=== PATIENT | female | born 1975 | race Caucasian/White ===

== ENCOUNTER 2016-08-14 12:09 | Day surgery (SDC) | payer MEDICAID, OTHER ==
[2016-08-14] VITALS (13 sets, daily range): BP systolic 119–158; BP diastolic 7–91; PULSE 68–80; RESP 6–20; O2SAT 95–100
[~2016-08-14] VITALS: Ht 154.9 cm; Wt 74.8 kg
[2016-08-14] MEDS: Lactated Ringer's 1,000 ML IV SCH ×3 (05:00→13:04)
[~2016-08-14 12:09] MED LIST: ACET-2766 PO; ASPI-973 PO; CeFAZolin 2 Gm/50 mL D5W IV Premix IV ONE; MELO-253 PO; TRAM50TA2 PO; Vancomycin Inj 1,000 MG in IV Premix 1 EACH IV ONE
[2016-08-14] MEDS ORDERED: fentaNYL-PF 50 mCg/mL 2 mL Inj ONE (12:10)
[2016-08-14] MEDS ORDERED: CeFAZolin 2 Gm/50 mL D5W Duplex Bag IV ONE (12:23)
[2016-08-14] MEDS ORDERED: Vancomycin 1,000 mg/200 mL D5W IV ONE (12:23)
[2016-08-14] MEDS ORDERED: Lactated Ringer's 1,000 ML IV SCH (12:38)
[2016-08-14] MEDS ORDERED: Lactated Ringer's 500 ML IV PRN (12:38)
[2016-08-14] MEDS ORDERED: MetoCLOpramide 5 mg/mL 2 mL Inj IVPUSH PRN (12:40)
[2016-08-14] MEDS ORDERED: Labetalol 5 mg/mL 4 mL Inj IV PRN (12:40)
[2016-08-14] MEDS ORDERED: Dexamethasone 4 mg/mL Inj IVPUSH PRN (12:40)
[2016-08-14] MEDS ORDERED: EPHEDrine Sulfate 50 mg/mL Inj IVPUSH PRN (12:40)
[2016-08-14] MEDS ORDERED: Ondansetron 2 mg/mL 2 mL Inj IVPUSH PRN ×2 (12:40→14:40)
[2016-08-14] MEDS ORDERED: Phenylephrine 10,000 mCg/mL Inj IVPUSH PRN (12:40)
--- NOTE | 2016-08-14 12:40 | PCM.HPANE ---
Patient Data Surgeon Admitting Provider: Attending Provider:Devan Hernandez DO Primary Care Physician:Eric Arora MD Other Provider:Reta Echevarria Anesthesia Reason for Visit Left Knee Arthritis Ht/WT & BMI Height (Feet): 5 Height (Inches): 1.00 Weight (Kilograms): 74.8 Body Mass Index 31.00 Allergies Coded Allergies: meperidine (Verified Allergy, Unknown, nausea/vomiting, 06/02/15) Past Anesthesia History Anesthesia History: Denies:: Anesthesia Reactions ("issues breathing" after tubal), Fam Anesthesia Reaction, Fam Malignant Hypertherm, Malignant Hyperthermia Diabetes History Hx Diabetes?: No MRSA MRSA: No Medications Blood Thinner: Aspirin Home Meds Incl Beta Alvin: No Reported Medications Acetaminophen (Tylenol Arthritis)650 Mg Tablet.er1,300 Mg PO Q8H PRN For Pain 08/09/16 Tramadol 50 Mg [id number] Mg PO TID PRN For Pain Ref 0 08/09/16 Meloxicam 15 Mg [id number] Mg PO DAILY 30 Days Ref 0 08/09/16 Aspirin 81 Mg Rttmpn47 Mg PO DAILY Ref 0 08/09/16 Discontinued Reported Medications Naproxen (Naprosyn)500 Mg [id number] Mg PO BID PRN For Pain Ref 0 06/02/15 Lactobacillus Combo No.11 (Probiotic)1 Each Cap.sprink1 Each PO DAILY 09/10/14 History History of ENT Problems?: No HEENT History: Denies:: Hearing Problem Hx of Heart Problems?: Yes Cardiovascular History: Positive for:: Atrial Fibrillation (PAF in 2006) Chest Pain (atypical chest pain with w/up 2006 r/o WPW) Irregular Heartbeat (hx of WPW) Denies:: AICD Congestive Heart Failure Heart Murmur Hypertension Pacemaker Peripheral Vascular Hx of Respiratory Problem?: No Respiratory History: Positive for:: Pneumonia (as child ) Denies:: Asthma COPD Emphysema Oxygen Administration Tuberculosis Use of C-PAP Machine Use of Inhalers / NEBS Hx Neurologic Problems?: Yes Neurological History: Positive for:: Headaches (twice weekly) Denies:: CVA Dementia Dizziness Multiple Sclerosis Parkinson's Disease Seizures TIA Hx of GI Problems?: Yes Gastrointestinal History: Positive for:: Gall Bladder Disease (removed ) Denies:: Cirrhosis Gastroesphageal Reflux Gastrointestinal Bleeding Hepatitis Hiatal Hernia Liver Disease Rectal Bleeding Hx of Problems?: No Genitourinary History: Denies:: Kidney Stones Urinary Tract Infection Female Hx: Denies:: Currently (tubal ligation) Problems with Breasts? Skin History: Denies:: History Skin Disorders? Pressure Ulcers Hx Musculoskeletal Problems?: Yes Musculoskeletal History: Positive for:: Musculoskeletal Trauma (left knee current admission problem) Osteoarthritis Denies:: Back Injury Fibromyalgia Joint Replacement Myasthenia Gravis Systemic Lupus Hx of Psycho/Social Problems?: No Psycho Social History: Denies:: Anxiety Hx Depression Hx Surgeries?: Yes (tubal ligation, lu, knee scope ) Hx Any Other Health Problems?: Yes Other History: Denies:: Cancer Thyroid Disease History Blood Transfusions: Positive for:: Accept Blood Products? Denies:: Blood Transfusions Hx Diabetes: No Hx Alcohol Use: NoHx Substance Use: Yes (occ marijuana ) Smoking Status: Former Smoker Have You Smoked inLast 12 mo: No Stop/Bang Treated for Sleep Apnea?: No Do You Have a CPAP Machine?: No S-Snoring: Do You Snore Loudly: Yes T-Tired: feel tired, fatigued: Yes O-Obsered: Observed not breath: Yes P-Blood Pressure: treated: No B- Body Mass Index > 35 kg/m2: Yes A- Age over 50: No N- Neck Large Circumference: No G- Gender Male: No DUKE Total Score: 4 DUKE Risk Assessment: Low Risk, <3 Yes Risk Assessment Category Category 1A: Patient has history of documented sleep apnea, and HAS NOT received any narcotic, sedative or anesthesia administration during this stay. Category 1B: Patient has history of documented sleep apnea, and HAS received any narcotic , sedative or anesthesia administration during this stay Category 2: Patient has SUSPECTED Obstructive Sleep Apnea, and HAS received any narcotic , sedative or anesthesia administration during this stay. Category 3: Patient has SUSPECTED Obstructive Sleep Apnea and HAS NOT received narcotic, sedative or anesthesia administration during this stay. Category 4: Outpatient in Procedural Areas with known sleep apnea or who screen positive for High Risk via the STOP/BANG questionnaire. Exam Exam Vital Signs Vital Signs Date Time Temp Pulse Resp B/P Pulse Ox O2 Delivery O2 Flow Rate FiO2 08/14/16 12:20 36.8 70 14 135/91 99 Room Air General Appearance: Oriented X3 HEENT/AIRWAY: MP 2 Lungs: Normal Air Movement Heart: Regular Rate/Rhythm Meds/Labs/Diagnostics Admission Meds Current Medications Lactated Ringer's (Lr) 1,000 ml @ 120 mls/hr Q8H20M IV Last administered on t 12:20; Start 08/14/16 at 05:00; Stop 08/14/16 at 13:19 Plan Impression Patient chart reviewed, patient interviewed and anesthestic plan with risks, benefits, and alternatives discussed, and informed consent obtained. NPO Status: 08/14 ASA Physical Status: ASA2 Mod Systemic Disease Anesthetic Plan: GA, Regional Block Bene/Risks/Altern/Consents: Yes HP Complete Prior to Induction: Yes Danilo Rodrigues MD Aug 14, 2016 12:40
[2016-08-14] MEDS ORDERED: Ropivacaine-PF 0.5% 30 mL Inj ARTICULAR ONE (13:28)
[2016-08-14] MEDS ORDERED: Magnesium Hydroxide 10 mL Oral Concentration PO PRN (14:40)
[2016-08-14] MEDS ORDERED: diphenhydrAMINE 25 mg Capsule PO PRN (14:40)
[2016-08-14] MEDS ORDERED: Acetaminophen IV 1,000 MG in IV Premix 1 EACH IV PRN (14:40)
[2016-08-14] MEDS ORDERED: HYDROmorphone 1 mg/mL Inj IVPUSH PRN (14:40)
[2016-08-14] MEDS ORDERED: Polyethylene Glycol (PEG) 17 Gm Powder PO PRN (14:40)
[2016-08-14] MEDS: HYDROmorphone 1 mg/mL Inj IVPUSH PRN ×4 (15:12→18:23)
[2016-08-14] MEDS: fentaNYL-PF 50 mCg/mL 2 mL Inj IVPUSH PRN ×2 (15:12→15:32)
--- NOTE | 2016-08-14 15:16 | DRSVH ---
PROCEDURE: X-RAY LEFT KNEE, ONE OR TWO VIEWS ([id number]) INDICATIONS: post op TECHNIQUE: 2 view(s) of the knee acquired. COMPARISON: 07/05/2016 FINDINGS: Bones: Patient is status post knee joint arthroplasty. Hardware components are in expected position s. Visualized bony structures are intact. Soft tissues: Overlying postoperative changes are noted. Bandage artifact overlies the anterior knee . IMPRESSION: Acute postoperative changes of the medial hemiarthroplasty with expected appearance. Dictated by: Ang Calloway M.D. on 08/14/2016 at 15:14 Approved by: Ang Calloway M.D. on 08/14/2016 at 15:15
--- NOTE | 2016-08-14 15:35 | PCM.ANEP2 ---
Post Anesthesia Evaluation ASA/CMS Post Anesthesia VS in Patient's Normal Range?: Yes Resp Stable; Airway Patent?: Yes CV Function & Hydration Stable: Yes Mental Status Recovered?: Yes Pain control Satisfactory?: Yes N/V Control Satisfactory?: Yes Danilo Rodrigues MD Aug 14, 2016 15:35
--- NOTE | 2016-08-14 15:35 | PCM.ANEP1 ---
Post Anesthesia Phase 1 PACU Phase 1 Assessment Vital Signs Vital Signs Date Time Temp Pulse Resp B/P Pulse Ox O2 Delivery O2 Flow Rate FiO2 08/14/16 15:25 69 13 138/80 98 Nasal Cannula 3 08/14/16 15:10 79 6 123/80 100 Simple Mask 10 08/14/16 15:05 80 14 129/85 100 Simple Mask 10 08/14/16 15:00 72 14 125/76 100 Simple Mask 10 08/14/16 14:56 36.3 74 20 123/60 100 Simple Mask 10 08/14/16 12:20 36.8 70 14 135/91 99 Room Air Anesthetic Administered: GA, Regional Block Level of Alertness: Awake, talking Pain: No Nausea or Vomiting: No Oxygen Delivery: Room Air Lungs: Normal Air Movement Danilo Rodrigues MD Aug 14, 2016 15:35
--- NOTE | 2016-08-14 16:06 | OP ---
[address] [address] OPERATIVE REPORT PATIENT: HORACIO LIM : 1975 MR#: [id number] ADMIT: 08/14/2016 JOB ID: [id number] DATE OF SURGERY: 08/14/2016 PREOPERATIVE DIAGNOSIS(ES): Left medial compartment knee degenerative arthritis. POSTOPERATIVE DIAGNOSIS(ES): Left medial compartment knee degenerative arthritis. PROCEDURE: Left unicompartmental knee arthroplasty. SURGEON: Devan Hernandez DO UNDERWRITER: Luisana Hancock PA-C. INDICATIONS: The patient is a 41-year-old female with left knee medial compartment degenerative arthritis with failed conservative measures and wished to proceed with a medial compartment unicompartmental knee arthroplasty. We discussed risks, benefits, and possible complications of surgery. All questions were answered and she wished to proceed. A assembler surgical garment was required for the successful completion of this procedure. PROCEDURE IN DETAIL: The patient is brought to the operating room. She was given a preoperative antibiotic, femoral nerve block and general anesthetic. The left lower extremity was sterilely prepped and draped. A tourniquet was used for hemostasis. An incision was made over the anteromedial knee and dissection was carefully carried through the subcutaneous tissue. A small portion of the fat pad and the meniscus were removed. The anterior tyree of the anteromedial tibia was resected and the osteophytes were removed off of the medial femoral condyle. The Iris unicondylar knee cutting jig was placed in extension and care was taken to ensure that the jig was parallel to the long axis of the tibia. This was then pinned into position and the distal femoral cut was performed. The knee was then flexed and the tibial cut was performed, both the horizontal and sagittal cuts. The cutting jig was then removed and the cut pieces of bone were removed. The femur was then sized, and felt to be a size D. The D femur was pinned into position and the lugs were drilled and the femoral cuts were then performed. The tibia was then prepared and sized to be a size 2. The pin was cut and the size two tibial trial was inserted and then the lugs were drilled. The components were then trialed and seemed to fit quite nicely with a size 9 thickness poly. The components were then removed and the bony surfaces were washed and dried. The components were cemented into position beginning with the Gil [employer]hew ZUK 2 tibia followed by the D femur and an 8 mm poly was inserted initially while the cement was allowed to polymerize. All excess cement was removed. After the components fully seated and the cement had been allowed to polymerize, the excess cement was removed with an osteotome. I then retrialed and placed a size 9 thickness poly with vitamin E. The knee was then irrigated with the pulse lavage and the tourniquet was let down. Electrocautery was used for hemostasis. The wound was then closed with #1 Surgilon and 0 Vicryl to repair the medial retinaculum and quad tendon. The subcu was closed with a 2-0 running V lock and the skin was closed with a subcuticular 3-0 running V lock suture. Naropin was added as an adjunct local anesthetic. Sterile dressings were applied. Patient tolerated the procedure well. Blood loss was 25 cc. POSTOPERATIVE PROTOCOL: Have the patient weightbear to tolerance. Use crutches or walker for ambulation. Plan to use Xarelto 10 mg p.o. daily for DVT prophylaxis and followup in two weeks or sooner if needed.
[2016-08-14] MEDS: Sodium Chloride LOK Flush 10 mL Syringe IV SCH ×2 (16:30→23:43)
[2016-08-14] MEDS ORDERED: Propofol 10,000 mCg/mL 20 mL Inj ONE (17:20)
[2016-08-14] MEDS ORDERED: Ondansetron 2 mg/mL 2 mL Inj ONE (17:20)
[2016-08-14] MEDS ORDERED: MetoCLOpramide 5 mg/mL 2 mL Inj ONE (17:20)
[2016-08-14] MEDS ORDERED: Dexamethasone 4 mg/mL Inj ONE (17:20)
[2016-08-14] MEDS: 0.9% Sodium Chloride 1,000 ML IV SCH (18:22)
--- NOTE | 2016-08-14 18:25 | NUR ---
postop: Pt to floor from day surgery holding. Pt alert, and states pain 2/10. Able to transfer self to bed. Iv NS at 100 started. Using bedside commode to void. Catarino wrap to left knee. Full feeling to bilateral legs. Pt drinking well, no nausea, has ordered dinner. Pts family at bedside.
[2016-08-14] MEDS: hydrOXYzine Pamoate 25 mg Capsule PO PRN (19:55)
[2016-08-14] MEDS: Senna-Docusate 8.6-50 mg Tablet PO SCH (19:55)
[2016-08-14] MEDS: oxyCODONE-Acetamin 5-325 mg Tablet PO PRN (19:55)
[2016-08-14] MEDS: CeFAZolin Inj 2 GM in IV Premix 1 EACH IV SCH (21:01)
[2016-08-15] MEDS: oxyCODONE-Acetamin 5-325 mg Tablet PO PRN ×3 (00:24→09:01)
[2016-08-15 00:35] VITALS: BP 130/82; PULSE 78; RESP 18; O2SAT 95
[2016-08-15] MEDS: 0.9% Sodium Chloride 1,000 ML IV SCH ×2 (00:40→10:40)
--- NOTE | 2016-08-15 03:41 | NUR ---
Pain Pain controlled with po analgesia and occasional IVP dilaudid.VSS and ORTHOS WNL.Dressing CDI.Lamin. food and fluids w/o c/o nausea.Up with SBA and FWW and moving well.Sleeping soundly at this time and resting comfortably.Will cont. to monitor.
[2016-08-15 05:00] VITALS: BP 129/68; PULSE 80; RESP 18; O2SAT 96
[2016-08-15] MEDS: hydrOXYzine Pamoate 25 mg Capsule PO PRN ×2 (05:08→09:01)
[2016-08-15] MEDS: CeFAZolin Inj 2 GM in IV Premix 1 EACH IV SCH (05:09)
[2016-08-15 06:26] LABS: BASOPHILS % (AUTO) 0 % (0-3); EOSINOPHILS % (AUTO) 0 % (0-5); MONOCYTES % (AUTO) 8.3 % (4-12); Mean Corpuscular Hemoglobin 27.2 pg (27.0-35.0); Mean Corpuscular Volume 84.2 fL (81-100); NEUTROPHILS % (AUTO) 82.7 % (40-74); Platelet Count 392 bil/L (150-400)
--- NOTE | 2016-08-15 08:16 | PCM.PNORTH ---
Subjective Date of Service: Aug 15, 2016 Visit Information: Reason for Visit Left Knee Arthritis Surgery/Surgery Date Post-Op Day # Date of Admission: Aug 14, 2016 at 17:19 Hospital Day # Subjective Found patient awake alert this morning and well-positioned in bed. No complaints of pain at this time. Discussed discharge with patient today and she is aware of this. Encouraged participation with formal physical therapy again this morning prior to discharge for training. She states she walked from her room to the end of the [facility] yesterday on her op day. She has had some pain overnight but this was managed by her nurse with Percocet and Vistaril. Patient indicates she has 2-3 steps at her home and I have asked her to discuss this with physical therapy and practice stair training prior to discharge. Patient also indicates she has crutches at home for mobility and does not feel stable with him. I have encouraged patient to use a front wheeled walker for mobility and I will leave a prescription for a frontwheel walker in her chart which she can fill on the way home if needed. Otherwise patient is in good spirits and does have help at home and is ready for discharge. Postop General: No Complaints, No Shortness of Breath, No Chest Pain Pain Management: PO Objective Exam Objective Orientation: Alert and oriented 3 and pleasant. Dressing: Interoperative dressing is clean dry and intact. Dressing is changed to Dr. Hernandez style postop dressing with Silverlon this morning. Wound: Surgical wound is clean dry and intact with no focal erythema, no drainage and no focal swelling. Compartments: Thigh and calf are soft and nontender. Mobility/sensation: Mobility and sensation are intact at the left lower extremity distally. Abduction wedge: None WIN hose: None Meeks: Absent Wound VAC: None Drain: None Gait: Patient states she walked from her room to the end of the fall and back yesterday on op day. There is no physical therapy note found to verify this. Vital Signs and I/O Vital Sign - Last Date Time Temp Pulse Resp B/P Pulse Ox O2 Delivery O2 Flow Rate FiO2 08/15/16 05:00 36.8 80 18 129/68 96 Room Air 08/14/16 16:18 3 Intake and Output 08/14/16 08/14/16 08/15/16 Cumulative From/Thru 15:00 23:00 07:00 08/09/16 11:00 - 08/15/16 06:01 Intake Total 750 ml 500 ml 1954 ml 3204 ml Output Total 25 ml 1050 ml 1075 ml Balance 725 ml 500 ml 904 ml 2129 ml Intake Oral 400 ml 800 ml 1200 ml IV Total 750 ml 100 ml 1154 ml 2004 ml Output Urine Total 1050 ml 1050 ml Estimated Blood Loss 25 ml 25 ml # Bowel Movements 0 0 Lab & Micro Results Laboratory Tests Test 08/15/16 05:40 White Blood Count 12.6th/mm3 (3.8-10.1) Red Blood Count 4.56mil/mm3 (3.90-5.20) Hemoglobin 12.4g/dL (12.0-15.6) Hematocrit 38.4% (35.0-46.0) Mean Corpuscular Volume 84.2fL (81-100) Mean Corpuscular Hemoglobin 27.2pg (27.0-35.0) Mean Corpuscular Hemoglobin Concent 32.3% (32.0-37.0) Red Cell Distribution Width 13.7% (12.3-15.4) Platelet Count 392bil/L (150-400) Neutrophils (%) (Auto) 82.7% (40-74) Lymphocytes (%) (Auto) 8.8% (14-46) Monocytes (%) (Auto) 8.3% (4-12) Eosinophils (%) (Auto) 0% (0-5) Basophils (%) (Auto) 0% (0-3) Result Diagram: 08/15/16 0540 General Appearance: Alert, Oriented X3, Cooperative, No Acute Distress Extremities: No Compartment Syndrom Noted, Thigh & Calf Soft/Nontender Postop Sensory Motor: Distal Motor Intact, Movement in Toes, Distal Sensation Intact Activity: Activity per PT, Ambulate with PT (weightbearing as tolerated on the left lower extremity using a front wheeled walker.) Catheters: None Assessment & Plan Impression Patient is a 41-year-old female who is undergone a left medial unicompartmental knee arthroplasty on 08/14/[address] Devan Hernandez. She has planned for this procedure and does have help at home and does have crutches at home which is somewhat concerning because she states she does not feel particularly steady on them. I have discussed with her the use of a front wheeled walker and given her a prescription for this. She is otherwise ready for discharge to home today. Problems: Plan Postop day # 1 from left medial unicompartmental knee arthroplasty performed on 08/14/[address] Devan Hernandez. Weight bearing status: Weightbearing as tolerated on the left lower extremity using a front wheeled walker or crutches. Mobility aid: Front wheeled walker or bilateral axillary crutches Immobilization: None Precautions: Standard postop mobility precautions to avoid GL F Physical therapy: Physical therapy please see patient this morning before discharge for gait training and stair training prior to discharge. Patient has bilateral axillary crutches at home but is concerned with her stability and I have left a prescription for a front-wheeled walker in her chart and asked her to obtain this prior to returning home for her safety. Pain control: Continue by mouth pain control with Percocet 5/325 and Vistaril as needed. DVT prophylaxis: Continue Xarelto 10 mg daily 6 weeks postop for DVT prophylaxis. Wound care: Deep wound and dressing clean dry and intact until seen in office in 2 weeks. Additional bandaging supplies have been given to patient with explicit directions regarding their use. Infectious DZ: None Meeks: None Dressing: Interoperative dressing is changed this morning to fishnet, ABD with Silverlon dressing. Silverlon protocol is reviewed with patient and patient is given additional dressing materials. Drain: None Abduction wedge: None WIN hose: Thigh-high WIN hose will be ordered for patient this morning prior to discharge. Nursing communication: Please review application of WIN hose with patient prior to discharge. 2-week follow-up: Follow-up in 2 weeks at [facility] orthopedic clinic on prearranged appointment with mid-level provider for wound check and suture removal. 6-week follow-up: Follow-up in 6 weeks at [facility] orthopedic clinic with Dr. Devan Martini with left two-view knee x-rays on arrival. Plan: Patient will discharged home and pursue mobility exercises as reviewed with her today to gain flexion and extension at the knee. I have asked her use a front wheeled walker which have given her a prescription for today instead of bilateral axillary crutches for safety. Patient will change dressings as needed and this process has been reviewed with her and additional dressing material is given to her this morning. Discharge instructions: Keep wound and dressing clean dry and intact until seen in office in 2 weeks. Ice and elevate as needed for comfort. Use by mouth pain medications as directed. He is front-wheeled walker for mobility. Work on knee mobility as discussed this morning. Discharge plan: Discharge patient to home with spouse as caregiver on 2016 after physical therapy sees patient for mobility, gait and safety. VTE Prophylaxis: Other (Xarelto 10mg daily X 6 weeks postop.) Christopher Luther PA-C Aug 15, 2016 08:16
--- NOTE | 2016-08-15 08:19 | PCM.DIORTH ---
Ortho Discharge Instruction Date of Service: Aug 15, 2016 Dates of Hospitalization Date of Hospital Admission Aug 14, 2016 at 17:19 Providers Admitting Physician: Devan Hernandez DO Primary Care Physician: Eric Arora MD Attending Physician: Devan Hernandez DO Diet Discharge Diet: No restrictions Activity Discharge Activity-General: Try not to overdue, Be up and about, Balance rest and activity, Ice incision 3-5 time/day for 20min, Activity as pain allows, Activity as energy allows, No driving while taking narcotic Left Lower Extremity: Weight Bearing as tolerated Discharge Assist Device: Front Wheeled Walker, Crutches Dressing and Incisional Care Discharge Dressing Care: Keep dressing clean, dry & intact, Change soiled dressing Discharge Hygiene: May shower (patient may shower but wound and dressing should be kept clean dry and intact and covered.), DO NOT soak incision under water, NO bathtub, hot tub or whirlpool Additional Instructions Discharge Instructions Postop day # 1 from left medial unicompartmental knee arthroplasty performed on 08/14/[address] Devan Hernandez. Weight bearing status: Weightbearing as tolerated on the left lower extremity using a front wheeled walker or crutches. Mobility aid: Front wheeled walker or bilateral axillary crutches Immobilization: None Precautions: Standard postop mobility precautions to avoid GL F Physical therapy: Physical therapy please see patient this morning before discharge for gait training and stair training prior to discharge. Patient has bilateral axillary crutches at home but is concerned with her stability and I have left a prescription for a front-wheeled walker in her chart and asked her to obtain this prior to returning home for her safety. Pain control: Continue by mouth pain control with Percocet 5/325 and Vistaril as needed. DVT prophylaxis: Continue Xarelto 10 mg daily 6 weeks postop for DVT prophylaxis. Wound care: Deep wound and dressing clean dry and intact until seen in office in 2 weeks. Additional bandaging supplies have been given to patient with explicit directions regarding their use. Infectious DZ: None Meeks: None Dressing: Interoperative dressing is changed this morning to fishnet, ABD with Silverlon dressing. Silverlon protocol is reviewed with patient and patient is given additional dressing materials. Drain: None Abduction wedge: None WIN hose: Thigh-high WIN hose will be ordered for patient this morning prior to discharge. Nursing communication: Please review application of WIN hose with patient prior to discharge. 2-week follow-up: Follow-up in 2 weeks at [facility] orthopedic clinic on prearranged appointment with mid-level provider for wound check and suture removal. 6-week follow-up: Follow-up in 6 weeks at [facility] orthopedic clinic with Dr. Devan Martini with left two-view knee x-rays on arrival. Plan: Patient will discharged home and pursue mobility exercises as reviewed with her today to gain flexion and extension at the knee. I have asked her use a front wheeled walker which have given her a prescription for today instead of bilateral axillary crutches for safety. Patient will change dressings as needed and this process has been reviewed with her and additional dressing material is given to her this morning. Discharge instructions: Keep wound and dressing clean dry and intact until seen in office in 2 weeks. Ice and elevate as needed for comfort. Use by mouth pain medications as directed. He is front-wheeled walker for mobility. Work on knee mobility as discussed this morning. Discharge plan: Discharge patient to home with spouse as caregiver on 2016 after physical therapy sees patient for mobility, gait and safety. Follow Up Plan Follow Up Plan Patient will be seen at 2 weeks, 6 weeks and 12 weeks postoperatively. Patient will be seen when necessary in the interim. Follow-up Provider (F9): Devan Hernandez DO Mid-level Provider (F9): Luisana Hancock PA-C Follow-up appointment: Weeks (follow-up in 2 weeks at [facility] orthopedic clinic on prearranged appointment with mid-level provider for wound check and suture removal.) Call your provider for: Fever, Chills, Shortness of breath, Vomitting, Drainage at incision Christopher Luther PA-C Aug 15, 2016 08:19
[2016-08-15] MEDS ORDERED: OXYC1TAB24 PO (08:22)
[2016-08-15] MEDS ORDERED: DOCU-41 PO (08:22)
[2016-08-15] MEDS ORDERED: RIVA10TA PO (08:22)
[2016-08-15] MEDS ORDERED: HYDR-3797 PO (08:22)
--- NOTE | 2016-08-15 08:25 | PCM.DC.ORT ---
Discharge Summary Date of Service: Aug 15, 2016 Date of Hospital Admission: Aug 14, 2016 at 17:19 Date of Surgery: Aug 14, 2016 Date of Discharge: Aug 15, 2016 Reason for Hospitalization: Severe left knee osteoarthritis Procedures Performed: Left medial unicompartmental knee arthroplasty Hospital Course: Patient was admitted to the preoperative care unit on 08/14/2016 an upon processing was taken to the operating room where the procedure was performed without incident. Upon awakening patient was transferred to the postoperative care unit and upon recovery from anesthesia was transferred to the orthopedic care unit where they participated with formal physical therapy and received a recommendation for discharge and was subsequently discharged to an appropriate venue. Problems: (1) Arthritis of left knee Status: Acute ICD Code: M19.90 Disposition: Discharge to home with spouse as caregiver Orthopedic Follow up Plan: In Two Weeks in my clinic (follow-up in 2 weeks at [facility] orthopedic clinic on prearranged appointment for wound check and suture removal with mid-level provider.) Discharge Instructions: Postop day # 1 from left medial unicompartmental knee arthroplasty performed on 08/14/[address] Devan Hernandez. Weight bearing status: Weightbearing as tolerated on the left lower extremity using a front wheeled walker or crutches. Mobility aid: Front wheeled walker or bilateral axillary crutches Immobilization: None Precautions: Standard postop mobility precautions to avoid GL F Physical therapy: Physical therapy please see patient this morning before discharge for gait training and stair training prior to discharge. Patient has bilateral axillary crutches at home but is concerned with her stability and I have left a prescription for a front-wheeled walker in her chart and asked her to obtain this prior to returning home for her safety. Pain control: Continue by mouth pain control with Percocet 5/325 and Vistaril as needed. DVT prophylaxis: Continue Xarelto 10 mg daily 6 weeks postop for DVT prophylaxis. Wound care: Deep wound and dressing clean dry and intact until seen in office in 2 weeks. Additional bandaging supplies have been given to patient with explicit directions regarding their use. Infectious DZ: None Meeks: None Dressing: Interoperative dressing is changed this morning to fishnet, ABD with Silverlon dressing. Silverlon protocol is reviewed with patient and patient is given additional dressing materials. Drain: None Abduction wedge: None WIN hose: Thigh-high WIN hose will be ordered for patient this morning prior to discharge. Nursing communication: Please review application of WIN green with patient prior to discharge. 2-week follow-up: Follow-up in 2 weeks at [facility] orthopedic clinic on prearranged appointment with mid-level provider for wound check and suture removal. 6-week follow-up: Follow-up in 6 weeks at [facility] orthopedic clinic with Dr. Devan Martini with left two-view knee x-rays on arrival. Plan: Patient will discharged home and pursue mobility exercises as reviewed with her today to gain flexion and extension at the knee. I have asked her use a front wheeled walker which have given her a prescription for today instead of bilateral axillary crutches for safety. Patient will change dressings as needed and this process has been reviewed with her and additional dressing material is given to her this morning. Discharge instructions: Keep wound and dressing clean dry and intact until seen in office in 2 weeks. Ice and elevate as needed for comfort. Use by mouth pain medications as directed. He is front-wheeled walker for mobility. Work on knee mobility as discussed this morning. Discharge plan: Discharge patient to home with spouse as caregiver on 2016 after physical therapy sees patient for mobility, gait and safety. Management Plan: Patient will be seen at 2 weeks, 6 weeks and 12 weeks postoperatively. Patient will be seen when necessary in the interim. Docusate Sodium (Colace) 100 Mg Capsule 100 MG PO BID Hydroxyzine Pamoate (HydrOXYzine Pamoate) 25 Mg Capsule 25 MG PO Q4-6H PRN PRN For Spasm and/or Restlessness Rivaroxaban (Xarelto) 10 Mg Tablet 10 MG PO DAILY oxyCODONE-Acetaminophen 5-325 mg (oxyCODONE-Acetaminophen 5-325 mg) 1 Each Tablet 1-2 TAB PO Q4-6H PRN PRN For Severe Pain Christopher Luther PA-C Aug 15, 2016 08:25
[2016-08-15] MEDS: Senna-Docusate 8.6-50 mg Tablet PO SCH (09:01)
[2016-08-15] MEDS: Sodium Chloride LOK Flush 10 mL Syringe IV SCH (09:04)
--- NOTE | 2016-08-15 11:29 | NUR ---
Social Work Discharge: SW spoke to patient at bedside to discuss discharge plan. Patient is a 41 year old female admitted on 08/14/16 for left knee arthritis. Patient payer as [employer]. 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 Patient resides in [place] with mother Lisa, and brother. Patient states having 2-3 steps to enter into home. Patient states pharmacy of choice as [facility]. Patient has no HHC history. Patient has no SNF history. Patient has crutches and cane for use at home. Patient states having no AD and declined information at this time. Patient states being independent with needs and states that she drives independently. Patient states friend Eric to provide transport home today. No anticipated discharge needs at this time. SW to await PT eval. SW to follow. PLAN: Home with mother and brother via POV, pending clinical course and PT eval. SW to follow. Lisa PATEL
[2016-08-15 11:45] VITALS: BP 145/84; PULSE 75; RESP 19; O2SAT 99
--- NOTE | 2016-08-15 12:10 | NUR ---
Discharge Pt discharged to home with family via private vehicle at 1200 hrs. PIV removed intact. Pain controlled. VSS. All personal possessions sent with pt. Discharge and follow up instructions given to pt and she expressed understanding.
--- NOTE | 2016-08-15 13:54 | NUR ---
Evaluation completed. Please go to "Notes" then click on "Assessments and Notes" (bottom left corner of screen). Then select appropriate discipline tab on top of screen.
== END 2016-08-15 12:03 | disposition home or self-care (01) ==
LOC: SAS 12:09 → OSC 17:19 → UNDOADMIN 17:19 → SAS 08-15 12:03 → UNDODISIN 08-15 12:03
PROVIDERS: ATTEND Orthopaedic Surgery
DX: M17.12 Unilateral primary osteoarthritis, left knee (principal); I45.6 Pre-excitation syndrome; R00.2 Palpitations; Z79.82 Long term (current) use of aspirin
CPT/HCPCS: 27446; 36415; 73560; 85025; 97161; J0131; J0690; J1100; J1170; J2405; J2765; J2795; J3010; J7030; J7120; Q0177